=== PATIENT | male | born 1960 | race Caucasian/White ===

== ENCOUNTER → 2017-11-02 13:48 | Outpatient (CLI) | payer OTHER, SELFPAY ==
--- NOTE | 2017-11-02 13:57 | ECHOD_ITS ---
Reason For Study: CARDIOMYOPATHY Procedure This was a 2D Doppler, Color Flow transthoracic echocardiogram. The exam was of fair technical quality due to diminished acoustic windows. Exam performed in department. Left Ventricle Normal LV size. Left ventricular systolic function is normal. The estimated ejection fraction is 55 %. Transmitral doppler flow suggestive of impaired relaxation of left ventricle. No regional wall motion abnormalities noted. Right Ventricle Normal RV size. Normal systolic function. Atria The left atrium is mildly enlarged. Normal right atrium. No doppler evidence for ASD. Mitral Valve There is no mitral annular calcification. Equivocal mitral valve prolapse. Trivial mitral valve insufficiency. Tricuspid Valve Normal tricuspid valve. Trivial tricuspid valve insufficiency. Right ventricular systolic pressure estimated to be 21 mmHg. Aortic Valve Trisinus/trileaflet aortic valve. Normal aortic valve. Pulmonic Valve The pulmonic valve is not well visualized. Trivial pulmonic valve insufficiency. Great Vessels Normal sized aortic root. Pericardium/Pleural No pericardial effusion. MMode/2D Measurements & Calculations LVIDd: 4.9 cm IVSd: 0.87 cm Ao root diam: 2.9 cm LVIDs: 3.0 cm LVPWd: 0.88 cm LA dimension: 3.8 cm RVDd: 3.3 cm FS: 39.5 % LAV(MOD-bp): 60.8 ml LA A4 area: 20.2 cm2 RA A4 area: 14.7 cm2 LAV(MOD-bp) Indexed: 28.0 ml/m2 LAV(MOD-sp2): 59.5 ml LAV(MOD-sp4): 55.6 ml Doppler Measurements & Calculations MV E max tarik: 73.6 cm/sec Lat Peak E' Tarik: 11.4 cm/sec Med Peak E' Tarik: 9.4 cm/sec MV A max tarik: 82.3 cm/sec E/E' lat: 6.4 E/E' med: 7.9 MV E/A: 0.90 Ao V2 max: 125.7 cm/sec LV V1 max: 110.4 cm/sec PA V2 max: 107.1 cm/sec Ao max P.3 mmHg LV V1 max P.9 mmHg PI end-d tarik: 82.1 cm/sec TR max tarik: 214.3 cm/sec TR max P.4 mmHg Interpretation Summary Left ventricular systolic function is normal. The estimated ejection fraction is 55 %. The left atrium is mildly enlarged. Equivocal mitral valve prolapse. Trivial mitral valve insufficiency. Trivial tricuspid valve insufficiency. Trivial pulmonic valve insufficiency. Right ventricular systolic pressure estimated to be 21 mmHg. Transmitral doppler flow suggestive of impaired relaxation of left ventricle Ordering Physician: Rosi Hanson Referring Physician: Rosi Hanson M.D. Performed By: Vero Sims RDCS, RVT
--- NOTE | 2017-11-02 14:38 | CT_ITS ---
STUDY: CT BRAIN WITH AND WITHOUT CONTRAST REASON FOR EXAM: Male, 56 years old. Memory loss RADIATION DOSAGE (If Supplied By Facility): CTDIvol = ( 44.99 ) mGy, DLP = ( 1583.78 ) mGycm TECHNIQUE: Transaxial CT imaging of the brain was performed pre and post contrast administration. The examination was performed with intravenous administration of 50 ml of Isovue 370 contrast material. Individualized dose optimization techniques were used for this CT. COMPARISON: None. FINDINGS: There is no acute bleed or infarct. There are normal white matter tracts. There is no abnormal enhancement following contrast administration. There are no intracranial masses identified. The ventricles are normal in configuration. There is no hydrocephalus. The visualized paranasal sinuses are clear. The mastoid air cells are well aerated. There is no skull fracture. CT/Brain/Head W/WO Contrast IMPRESSION: Unremarkable CT of the brain performed without and with intravenous contrast. Electronically Signed: Paul Alejo, at 23:12 EDT Tel , Service support ,
== END ==
PROVIDERS: Family Provider Internal Medicine; PCP Internal Medicine; Visit Provider Internal Medicine
DX: R41.3 Other amnesia (principal); I42.9 Cardiomyopathy, unspecified
CPT/HCPCS: 70470; 93306; Q9967

== ENCOUNTER → 2021-02-22 12:02 | Outpatient (CLI) | payer OTHER, SELFPAY ==
[2021-02-22 15:30] LABS: Erythrocyte Sedimentation Rate 8 mm/hr (0-20)
[2021-02-22 15:32] LABS: Absolute Neutrophil Count 4.8 X10^3/uL (2.0-7.7); Basophil# 0.03 X10^3/uL; Basophil% 0.4 % (0-1); Eosinophil# 0.28 X10^3/uL; Hematocrit 45.1 % (40-54); Hemoglobin 15.3 g/dL (13.0-16.5); Lymphocyte % 19.8 % (19-41); Mean Corp Hgb Conc 33.9 g/dL (32-36); Mean Corpuscular Hgb 31.8 pg (27.0-32.0); Mean Corpuscular Volume 93.8 fL (80-94); Mean Platelet Vol. 9.8 fl (6.2-12.0); Monocyte# 0.53 X10^3/uL; Monocyte% 7.5 % (0-10); NRBC Flagged by Analyzer 0 % (0-5); Neutrophil # 4.81 X10^3/uL (2.7-7.7); Neutrophil % 67.9 % (47-70); Platelet Count 231 K/mm3 (150-450); RBC Distribution Width CV 14.6 % (11.6-14.6); RBC Distribution Width SD 50.1 fl (35.1-43.9); Red Blood Count 4.81 M/mm3 (4.6-6.2); White Blood Count 7.1 K/mm3 (4.4-11.0)
[2021-02-22 16:04] LABS: CRP < 2.90 mg/L (0.0-3.0)
== END ==
PROVIDERS: PCP Internal Medicine; Referring Provider Ophthalmology; Visit Provider Ophthalmology
DX: H53.2 Diplopia (principal); H53.10 Unspecified subjective visual disturbances
CPT/HCPCS: 36415; 85025; 85652; 86140

== ENCOUNTER 2021-05-17 12:19 | Outpatient (CLI) | payer OTHER, SELFPAY ==
[2021-05-17 12:24] VITALS: BP 139/80; PULSE 66; RESP 16; TEMP 36.8; O2SAT 100; BMI 30.7
[2021-05-17] MEDS: 0.9% Saline Lock 10 ML Syringe IV (12:39)
[2021-05-17 13:11] VITALS: BP 129/75; PULSE 62; RESP 16; TEMP 37.1; O2SAT 99
[2021-05-17 13:58] VITALS: BP 159/79; PULSE 62; RESP 16; TEMP 36.8; O2SAT 100
== END 2021-05-17 14:11 | disposition home or self-care (01) ==
LOC: MS3OUT 12:19 → MS3 12:20
PROVIDERS: PCP Internal Medicine; Referring Provider Nurse Practitioner Adult Health; Visit Provider Nurse Practitioner Adult Health
DX: U07.1 COVID-19 (principal)
CPT/HCPCS: J7050; M0245; Q0245; A4216

== ENCOUNTER → 2022-06-20 | Outpatient (CLI) | payer OTHER, SELFPAY ==
--- NOTE | 2022-06-20 15:41 | RAD_ITS ---
EXAM: XR BILATERAL HIPS WITH PELVIS WHEN PERFORMED, 2 VIEWS CLINICAL INDICATION: HIP PAIN TECHNIQUE: Frontal view of the bilateral hips with pelvis when performed. This report was created using [employer] report generation technology. COMPARISON: None. FINDINGS: BONES/JOINTS: Unremarkable. No displaced fracture. No destructive or sclerotic lesions. Note that overlapping bowel shadows may however obscure fine detail. Sacroiliac joint is unremarkable. No widening of the pubic symphysis. The articular structures are unremarkable. SOFT TISSUES: Unremarkable. No soft tissue swelling or gas. RAD/Hips B/L min 2 views w/ Pelvis IMPRESSION: No evidence of displaced pelvic or hip fracture. Electronically Signed: Bismark Ledesma MD at 18:53 EST ,
== END | disposition home or self-care (01) ==
PROVIDERS: PCP Internal Medicine; Referring Provider Internal Medicine; Visit Provider Internal Medicine
DX: M25.551 Pain in right hip (principal); M25.552 Pain in left hip
CPT/HCPCS: 73521

== ENCOUNTER → 2023-03-15 | Outpatient (CLI) | payer OTHER, SELFPAY ==
--- NOTE | 2023-03-15 15:19 | RAD_ITS ---
STUDY: X-RAY - LUMBAR SPINE REASON FOR EXAM: Male, 62 years old. Radiating leg pain TECHNIQUE: 4 view(s) of the lumbar spine were obtained. COMPARISON: None FINDINGS: Normal lumbar lordosis. There is no substantial scoliosis. There is a normal alignment of the vertebrae. Normal vertebral bodies and endplates. There is multi-level degenerative disc disease with multi-level disc space narrowing. There is no demonstrated fracture. There is atherosclerotic calcification of the abdominal aorta without a demonstrated aneurysm. RAD/L/S Spine Min 4 Views IMPRESSION: Age consistent degenerative changes, no acute findings Electronically Signed: Justin Polanco MD at 9:17 EDT ,
== END | disposition home or self-care (01) ==
PROVIDERS: PCP Family Medicine; Referring Provider Family Medicine; Visit Provider Family Medicine
DX: M54.16 Radiculopathy, lumbar region (principal)
CPT/HCPCS: 72110

== ENCOUNTER → 2023-05-23 | Outpatient (CLI) | payer OTHER, SELFPAY ==
--- NOTE | 2023-05-23 13:50 | NEURO ---
NCS and/or EMG Patient Report Ordering Doctor: Kelly Lorenz DATE OF SERVICE: 05/23/23 Cristo presents for electrodiagnostic testing of the lower limbs. Reports pain numbness and tingling in both legs. He has a history of chronic Lyme disease. He reports lower back pain. Electrodiagnostic findings: Right peroneal motor nerve demonstrates normal distal latency, amplitude and conduction velocity. Left peroneal motor nerve demonstrates normal distal latency, amplitude and conduction velocity. Tibial motor response demonstrates normal distal latency, amplitude and conduction velocity bilaterally. Normal tibial and peroneal F?waves. Borderline prolonged right tibial H?reflex. Mildly prolonged sural latency is noted bilaterally. Normal superficial peroneal motor response. Needle EMG testing was performed in the lower limbs. All muscles tested showed no evidence of denervation with normal motor unit action potentials. Electrodiagnostic assessment: This is an abnormal study in the lower limbs. 1. Electrodiagnostic findings demonstrate prolonged distal latency bilaterally in the sural nerve, consistent with a mild bilateral sural neuropathy. However, this does not adequately explain the patient's symptoms. There is no electrodiagnostic evidence for peripheral polyneuropathy. 2. There is no electrodiagnostic evidence for lumbosacral radiculopathy. 3. There is no electrodiagnostic evidence for myopathy. Multi Select Codes Neurology Neurology Interp Codes: 45931-93 Musc test done w/n test comp (interp) (2) and 30230-96 Nrv cndj test 9-10 studies (interp)
== END | disposition home or self-care (01) ==
LOC: PSN 12:29
PROVIDERS: PCP Family Medicine; Referring Provider Family Medicine; Visit Provider Family Medicine
DX: M62.81 Muscle weakness (generalized) (principal); G62.9 Polyneuropathy, unspecified; Z86.19 Personal history of other infectious and parasitic diseases
CPT/HCPCS: 95886; 95911

== ENCOUNTER 2024-05-01 18:44 | Inpatient (IN) | payer OTHER, SELFPAY ==
[2024-05-01] VITALS (8 sets, daily range): BP systolic 125–160; BP diastolic 73–82; PULSE 71–76; RESP 15–26; TEMP 36.2; O2SAT 95–99; BMI 31.0; BMI 30.3
--- NOTE | 2024-05-01 19:42 | EKG12_ITS ---
Test Reason : REPEAT Blood Pressure : */* mmHG Vent. Rate : 73 BPM Atrial Rate : 73 BPM P-R Int : 174 ms QRS Dur : 86 ms QT Int : 362 ms P-R-T Axes : 21 39 15 degrees QTcB Int : 398 ms Normal sinus rhythm Normal ECG Confirmed by YAMILETH BROOKS, LUPE ([id number]), business editor ISIDRO GARIBAY ([id number]) on 05/07/2024 1:27:31 P M Referred By: Kris Lobo Confirmed By: LUPE CARSON MD
--- NOTE | 2024-05-01 19:45 | RAD_ITS ---
STUDY: X-RAY CHEST REASON FOR EXAM: Male, 63 years old. Chest pain TECHNIQUE: Single AP portable view of the chest. COMPARISON: February 10, 2014 FINDINGS: The lungs are clear and expanded. There is no demonstrated pleural abnormality. Normal size heart. Normal mediastinum and adam. Normal visualized pulmonary arteries. Normal visualized aortic arch and descending thoracic aorta. Normal visualized thoracic spine. Normal visualized ribs, clavicles, and shoulders. There is no demonstrated abnormality of the visualized soft tissue structures of the upper abdomen. RAD/Chest 1 View (Portable) IMPRESSION: Normal x-ray examination of the chest. Electronically Signed: Tavon Tabares MD at 21:[address] [facility] ,
[2024-05-01 19:50] LABS: Absolute Neutrophil Count 6.1 X10^3/uL (2.0-7.7); Basophil# 0.03 X10^3/uL; Basophil% 0.3 % (0-1); Eosinophil# 0.13 X10^3/uL; Eosinophils% 1.5 % (0-5); Hematocrit 43.8 % (40-54); Lymphocyte % 21.5 % (19-41); Mean Corp Hgb Conc 34.2 g/dL (32-36); Mean Corpuscular Hgb 31.3 pg (27.0-32.0); Mean Corpuscular Volume 91.4 fL (80-94); Mean Platelet Vol. 9.5 fl (6.2-12.0); Monocyte# 0.63 X10^3/uL; Monocyte% 7.1 % (0-10); NRBC Flagged by Analyzer 0 % (0-5); Neutrophil % 69.3 % (47-70); Platelet Count 229 K/mm3 (150-450); RBC Distribution Width SD 49.6 fl (35.1-43.9); Red Blood Count 4.79 M/mm3 (4.6-6.2); White Blood Count 8.8 K/mm3 (4.4-11.0)
--- NOTE | 2024-05-01 20:04 | EDS_ITS ---
HPI History of Present Illness Chief Complaint: Chest Pain Informant: patient and spouse/S.O. Narrative Narrative: 63-year-old male presenting to the emergency room out of concern for heart attack. Patient states today he was at work and he went outside to help get kids loaded up he felt tightness in his chest and his head. Symptoms resolved he went home and had another episode this time making his left arm and his bilateral jaw hurt. He states he felt this pressure sensation in his chest and his head again. states that he appeared grayish. He states he feels much better but still has a slight discomfort in the jaw. He notes that he has been having some difficulty breathing through his nose and thought perhaps it was the fireplace and had an episode of difficulty breathing through his mouth so he went to an outside emergency department last night. He states he had cardiac enzymes that were elevated (troponin high-sensitivity 67 and 61 with normal less than 12) and was advised to follow-up with cardiology. These results were obtained using Satiety. he notes that in the past he has been diagnosed with Lyme disease and had a cardiomyopathy that he was seeing cardiology for. He states he has not seen a research home economist now for couple years. He notes a history of hypothyroidism reported dyslipidemia and enlarged prostate. He denies any leg symptoms or sweating dyspnea. He does get acid reflux but states this felt very much different. [facility] Medical History (Updated 05/01/24 @ 21:[address] Laura West MD) CKD (chronic kidney disease), stage III Depression Cardiomyopathy Acid reflux Inguinal hernia, right Arthritis Mild degeneration of cervical intervertebral disc Benign prostatic hyperplasia with urinary obstruction and other lower urinary tract symptoms Right groin pain Borderline diabetes mellitus Hypothyroidism Hyperlipidemia Lyme disease LUE DVT Home Medications ?Medication ?Instructions ?Recorded ?Last Taken ?Type trazodone 50 mg tablet 50 mg PO DAILY 02/10/14 02/11/14 History prazosin 2 mg capsule 4 mg PO HS 09/04/17 Unknown History sertraline 50 mg tablet 50 mg PO QDAY 09/04/17 Unknown History carvedilol 3.125 mg tablet (Coreg) 3.125 mg PO BID #180 tabs 06/09/19 Unknown Rx dexamethasone 6 mg tablet 6 mg PO DAILY #5 tabs 05/16/21 Unknown Rx (Decadron) Allergy/AdvReac Type Severity Reaction Status Date / Time hydrocodone (From Vicodin) Allergy Unknown Unknown Verified 05/01/24 18:44 simvastatin Allergy Unknown Unknown Verified 05/01/24 18:44 Family History (Updated 05/01/24 @ 21:[address] Laura West MD) Father Heart disease Cancer Hypertension Mother Heart disease Diabetes Hypertension Surgical History S/P PICC central line placement S/P inguinal hernia repair Hx of fusion of cervical spine S/P cholecystectomy Social History (Updated 05/01/24 @ 21:[address] Laura West MD) household members: spouse Smoking Status: Never smoker second hand exposure: No alcohol intake: never substance use type: does not use caffeine: Yes what type of physical activity do you participate in: none frequency: does not exercise seatbelt use: always ROS ROS ED Constitutional Constitutional ED: Denies chills, fever(s) or weight loss Eyes Eyes: Denies change in vision or diplopia ENT ENT ED: Reports other Details: Jaw pain nasal congestion ; Denies ear pain, rhinorrhea or sore throat Cardiovascular Cardiovascular: Reports chest pain; Denies orthopnea, palpitations or racing heartbeat Respiratory/Chest Respiratory/Chest: Reports dyspnea; Denies cough or orthopnea Gastrointestinal Gastrointestinal: Denies abdominal pain, diarrhea, nausea or vomiting Genitourinary Genitourinary ED: Denies dysuria, hematuria or urinary frequency Musculoskeletal Musculoskeletal: Denies arthralgias or myalgias Integumentary Denies abscess or rash Neurologic Neurologic: Denies headache(s) or weakness Psychiatric Psychiatric: Denies anxiety, depression, suicidal ideation or suicidal thoughts Endocrine Endocrinology: Denies polydipsia, polyphagia or polyuria Allergic/Immunologic Allergic/Immunologic ED: Denies mouth swelling, tongue swelling or urticaria EXAM Physical Exam Const Vital Signs: 05/01/24 18:45 05/01/24 18:55 05/01/24 19:42 Temperature 97.2 F L Temperature Source Temporal Pulse Rate 73 Respiratory Rate 18 Respiratory Effort Normal Non-Labored Blood Pressure 160/82 H Blood Pressure Mean 108 Pulse Ox 98 95 Oxygen Delivery Method Room Air Room Air 05/01/24 19:45 05/01/24 20:00 05/01/24 21:00 Temperature Temperature Source Pulse Rate 73 71 74 Respiratory Rate 23 H 19 H 26 H Respiratory Effort Blood Pressure 141/73 H 140/77 H 138/76 H Blood Pressure Mean 92 93 96 Pulse Ox 95 99 97 Oxygen Delivery Method Positive well nourished and well developed General Appearance ED: well developed and NAD HEENT Reports normocephalic, head/scalp atraumatic and moist mucous membranes Eyes PERRL and EOMs intact bilaterally Neck no lymphadenopathy, supple and no JVD Resp normal respiratory effort and clear to auscultation bilaterally Cardio regular rate, regular rhythm and no murmurs GI normal to inspection, nondistended, normoactive bowel sounds and non-tender Palpation: soft Back/Spine no CVA tenderness and normal ROM Extremity normal to inspection General Extremety ED: Negative for edema General Extremity: Negative for edema Neuro oriented x3 and CN's II-XII intact bilaterally Sensorium / Orientation: alert Motor Exam: strength 5/5 throughout Psych mental status grossly normal Mood & Affect: Negative for depressed or tearful Skin no rashes or lesions noted and no wounds Heart Score History: Highly Suspicious ECG: Normal Age: >45 - <65 years Risk Factors: 1 or 2 Risk Factors Score: 4 MDM MDM MDM Narrative Medical decision making narrative: Differential diagnosis includes but not limited to acute coronary syndrome pulmonary embolism pleural effusion congestive heart failure cardiomyopathy hypertensive urgency/emergency electrolyte abnormality My independent interpretation of the chest x-ray is no acute process. EKG shows a sinus rhythm with PAC and a ventricular rate of 72 bpm. Initial troponin is 68 this increased to 82 this delta troponin. Second EKG does not show any significant changes from the first. Given the patient's description of his symptoms I think it is reasonable that we bring him in for further cardiac evaluation. I will speak with the hospitalist. History & Record Review Discussion w/independent historian: Patient and Significant other Additional record(s) reviewed:: Prior labs Lab Data Attestation: I reviewed the patient's lab results. Labs: Laboratory Results - last 24 hr 05/01/24 05/01/24 18:59 21:55 WBC 8.8 RBC 4.79 Hgb 15.0 Hct 43.8 MCV 91.4 MCH 31.3 MCHC 34.2 RDW Std Deviation 49.6 H RDW Coeff of Melani 15.0 H Plt Count 229 MPV 9.5 Immature Gran % (Auto) 0.300 Neut % (Auto) 69.3 Lymph % (Auto) 21.5 [place] % (Auto) 7.1 Eos % (Auto) 1.5 Baso % (Auto) 0.3 Absolute Neuts (auto) 6.1 Absolute Lymphs (auto) 1.90 Nucleated RBC % 0 Sodium 140 Potassium 4.2 Chloride 107 Carbon Dioxide 28.0 Anion Gap 5 BUN 19 H Creatinine 1.48 H Estim Creat Clear Calc 61.01 Est GFR (MDRD) Af Amer 62 Est GFR (MDRD) Non-Af 51 L BUN/Creatinine Ratio 12.8 Glucose 116 H Calcium 9.4 Magnesium 2.0 Troponin I High Sens 68 82 H Radiography Diagnostic Testing: Clinical Impression(s) from Imaging Studies Chest X-Ray 05/01/24 19:45 IMPRESSION: Normal x-ray examination of the chest. Electronically Signed: Tavon Tabares MD at 21:09 EST , EKG Initial EKG: Attestation: I personally reviewed and interpreted this EKG as follows: Comments: Sinus rhythm with PACs ventricular rate of 72 bpm Follow-up EKG: Attestation: I personally reviewed and interpreted this EKG as follows: Comments: Normal sinus rhythm ventricular rate of 73 bpm Management Discussion w/another healthcare provider: Hospitalist (Dr West) Discharge Plan Triage Chief Complaint: Chest Pain ED Provider: Kris Lobo Dx/Rx/DC Orders Prescriptions: No Action prazosin 2 mg capsule 4 mg PO HS sertraline 50 mg tablet 50 mg PO QDAY dexamethasone [Decadron] 6 mg tablet 6 mg PO DAILY Qty: 5 0RF trazodone 50 MG tablet 50 mg PO DAILY Patient Comments: SLEEP carvedilol [Coreg] 3.125 mg tablet 3.125 mg PO BID Qty: 180 3RF Rx Instructions: administer with food (meal or snack) Primary Care Provider: Kelly Lorenz Referrals: Kelly Lorenz MD [Primary Care Provider] - Print Language: Belarusian
[2024-05-01 20:11] LABS: Anion Gap 5 (5-15); BUN 19 mg/dL (7-18); BUN/Creat Ratio 12.8 RATIO (10-20); Calcium,Total 9.4 mg/dL (8.5-10.1); Chloride 107 mmol/L (98-107); Creatinine, Serum 1.48 mg/dL (0.70-1.30); EST Glomerular Filtration Rate 51 mL/min (>60); Est Glom Filt Rate - Afr Amer 62 mL/min (>60); Estimated Creatinine Clearance 61.01 ml/min; Glucose 116 mg/dL (74-106); Potassium 4.2 mmol/L (3.5-5.1); Sodium Level 140 mmol/L (136-145); Troponin-I HS (w/2H Reflex) 68 pg/mL (3.0-78.0)
[2024-05-01 21:46] LABS: Reflex Troponin-HS? (from REC) Y
--- NOTE | 2024-05-01 21:49 | PCM.HP.STD ---
HPI - General General Date of Admission: 05/01/24 Date of Service: 05/01/24 Chief Complaint: Chest pain, dyspnea. HPI Narrative The patient is a 63 y/o M w/ PMHx: Suspected CKD stage III unclear subtype, Cardiomyopathy unclear type, Anxiety and Depression, GERD, BPH, Borderline Diabetes, Hx Lyme disease with chronic bilateral lower extremity paresthesias and left upper extremity paresthesias, Hx LUE DVT after PICC placement which has been placed for Lyme disease therapy, HTN, HLD, Hypothyroidism who presents to the 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 He notes his chest feels better but he still has some jaw discomfort. He does state he also had some dyspnea associated. Because of some dyspnea he had the evening prior he also reports that he been seen in the outside emergency room with cardiac enzymes reportedly possibly elevated and was advised to follow-up with cardiology but uncertain as records have been requested per ED and are pending. He does state that in the past he had seen cardiology for cardiomyopathy but is not seen them for some time. He does have a history of reflux and dyspepsia but the symptoms are different. He noted at it is worse his chest discomfort and jaw discomfort were rated 8-9 out of 10 in severity. Workup in the ED included T97.2, heart rate 73, BP 160/82, respiratory rate 18, 98% on room air with most recent repeat vital sign heart rate 74, BP 130/76, respiratory rate 26, 97% room air, CBC with WBC 8.8, hemoglobin 15, platelet 229 without marked shift, BMP with BUN/creatinine 19/1.48, GFR 51, glucose 116, initial troponin 68 with repeat delta 82, chest x-ray with no acute cardiopulmonary findings, EKG with sinus rhythm with no acute evidence of ischemia. Discussed case with Dr. Laguna on-call for cardiology given history and at this time recommended pursuing cardiac stress testing unless cardiac enzymes continue to rise or any concerning things occurred cardiac valenzuela. [facility] Medical History CKD (chronic kidney disease), stage III Depression Cardiomyopathy Acid reflux Inguinal hernia, right Arthritis Mild degeneration of cervical intervertebral disc Benign prostatic hyperplasia with urinary obstruction and other lower urinary tract symptoms Right groin pain Borderline diabetes mellitus Hypothyroidism Hyperlipidemia Lyme disease LUE DVT Home Medications ?Medication ?Instructions ?Recorded ?Last Taken ?Type trazodone 50 mg tablet 50 mg PO DAILY 02/10/14 02/11/14 History prazosin 2 mg capsule 4 mg PO HS 09/04/17 Unknown History sertraline 50 mg tablet 50 mg PO QDAY 09/04/17 Unknown History carvedilol 3.125 mg tablet (Coreg) 3.125 mg PO BID #180 tabs 06/09/19 Unknown Rx dexamethasone 6 mg tablet 6 mg PO DAILY #5 tabs 05/16/21 Unknown Rx (Decadron) Allergy/AdvReac Type Severity Reaction Status Date / Time hydrocodone (From Vicodin) Allergy Unknown Unknown Verified 05/01/24 18:44 simvastatin Allergy Unknown Unknown Verified 05/01/24 18:44 Family History Father Heart disease Cancer Hypertension Mother Heart disease Diabetes Hypertension Surgical History S/P PICC central line placement S/P inguinal hernia repair Hx of fusion of cervical spine S/P cholecystectomy Social History household members: spouse Smoking Status: Never smoker second hand exposure: No alcohol intake: never substance use type: does not use caffeine: Yes what type of physical activity do you participate in: none frequency: does not exercise seatbelt use: always ROS ROS Narrative Admission Review of Systems: CONSTITUTIONAL: No weight loss, fever, chills, + weakness or fatigue. HEENT: Eyes: No visual loss, blurred vision, double vision or yellow sclerae. Ears, Nose, Throat: No hearing loss, sneezing, congestion, runny nose or sore throat. SKIN: No rash or itching, lesions, wounds. CARDIOVASCULAR: + Chest pain, jaw pain, left upper extremity paresthesias. No palpitations, edema, orthopnea, syncopal events. RESPIRATORY: No shortness of breath, cough or sputum, wheezing, hemoptysis. GASTROINTESTINAL: No anorexia, nausea, vomiting or diarrhea, abdominal pain, melena, BRBPR. GENITOURINARY: No dysuria, frequency, urgency or retention. NEUROLOGICAL: + Chronic bilateral lower extremity paresthesias, chronic left upper extremity paresthesias although it is noted this was acute on chronic and different he notes. No headache, dizziness, syncope, paralysis, ataxia, focal weakness, change in bowel or bladder control, seizure. MUSCULOSKELETAL: + muscle, back pain, joint pain or stiffness. HEMATOLOGIC: No anemia, bleeding or bruising. LYMPHATICS: No enlarged nodes. No history of splenectomy. PSYCHIATRIC: + History of anxiety and depression. ENDOCRINOLOGIC: No reports of sweating, cold or heat intolerance. No polyuria or polydipsia. ALLERGIES: No history of asthma, hives, eczema or rhinitis. Vital Signs Vital Signs Vital Signs: 05/01/24 18:45 05/01/24 18:55 05/01/24 19:42 Temperature 97.2 F L Temperature Source Temporal Pulse Rate 73 Respiratory Rate 18 Respiratory Effort Normal Non-Labored Blood Pressure 160/82 H Blood Pressure Mean 108 Pulse Ox 98 95 Oxygen Delivery Method Room Air Room Air 05/01/24 19:45 05/01/24 20:00 05/01/24 21:00 Temperature Temperature Source Pulse Rate 73 71 74 Respiratory Rate 23 H 19 H 26 H Respiratory Effort Blood Pressure 141/73 H 140/77 H 138/76 H Blood Pressure Mean 92 93 96 Pulse Ox 95 99 97 Oxygen Delivery Method Weight Weight: 222 lb 7.143 oz Body Mass Index (BMI) 31.0 Physical Exam Narrative Physical Examination: General: Awake, alert, oriented x 3 and cooperative, seated upright in the ED bed, denies any current chest discomfort and jaw pain is resolved, no dyspnea Skin: Normal color, normal turgor, no icterus, no cyanosis. HEENT: AT/NC, EOMI, PERRLA, MMM, no carotid bruits or JVD noted. Lungs: CTA bilaterally, moderate effort, mild decrease BL bases, no rales, ronchi or wheezing. Heart: Regular rate and rhythm; no gallop, rub audible. Abdomen: Soft, obese, NTTP, ND, normal BS, no HSM. Extremities: No cyanosis, no clubbing, no marked peripheral edema. Neurological: Patient awake, alert, oriented as noted, cognitive function intact; pupils equally reactive to light and accommodation, cranial nerves gross normal, moving all 4 extremities, no focal deficits, strength mildly globally decreased, chronic bilateral lower extremity and left upper extremity paresthesias unchanged. Psychiatric: Affect appears fatigued otherwise normal, no acute evidence of depressive or anxiety feelings but does have underlying history. Results Lab / Micro Data 05/01/24 18:59 05/01/24 18:59 Labs: Laboratory Results - last 24 hr 05/01/24 18:59: WBC 8.8, RBC 4.79, Hgb 15.0, Hct 43.8, MCV 91.4, MCH 31.3, MCHC 34.2, RDW Std Deviation 49.6 H, RDW Coeff of Mealni 15.0 H, Plt Count 229, MPV 9.5, Immature Gran % (Auto) 0.300, Neut % (Auto) 69.3, Lymph % (Auto) 21.5, [place] % (Auto) 7.1, Eos % (Auto) 1.5, Baso % (Auto) 0.3, Absolute Neuts (auto) 6.1, Absolute Lymphs (auto) 1.90, Nucleated RBC % 0, Sodium 140, Potassium 4.2, Chloride 107, Carbon Dioxide 28.0, Anion Gap 5, BUN 19 H, Creatinine 1.48 H, Estim Creat Clear Calc 61.01, Est GFR (MDRD) Af Amer 62, Est GFR (MDRD) Non-Af 51 L, BUN/Creatinine Ratio 12.8, Glucose 116 H, Calcium 9.4, Troponin I High Sens 68 Imaging Radiology Impression Chest X-Ray 05/01/24 19:45 IMPRESSION: Normal x-ray examination of the chest. Electronically Signed: Tavon Tabares MD at 21:09 EST , Assessment & Plan Assessment/Plan (1) Chest pain: PLAN: Plan The patient is a 63 y/o M w/ PMHx: Suspected CKD stage III unclear subtype, Cardiomyopathy unclear type, Anxiety and Depression, GERD, BPH, Borderline Diabetes, Hx Lyme disease, Hx LUE DVT after PICC placement which has been placed for Lyme disease therapy, HTN, HLD, Hypothyroidism who presents to the 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 #1. Chest Pain: EKG in ED with sinus rhythm with no acute evidence of ischemia, CXR w/ no acute cardiopulmonary findings, initial trop 68. Will admit to PCU, place on a monitored bed to assure no acute myocardial infarction with serial cardiac enzymes and EKGs. Per discussion with cardiology will at this time pursue cardiac stress testing but if enzymes rise notably then per discussion would involve cardiology and pursue cardiac catheterization, magnesium level requested, FLP in AM. BETITO NORRIS. #2. Cardiomyopathy, unclear type: Most recent echo noted 11/02/2017 with LV systolic function normal, EF 55%, mildly enlarged LA, trivial MVI, trivial TVI, trivial PI, RVSP 21 mmHg, transmitral Doppler flow suggestive of impaired relaxation of left ventricle, will continue Coreg, not on KARLOS inhibitor or ARB or statin therapy and per current list does not appear to be on baby aspirin but clarifying. #3. Chart reported history of borderline diabetes: Not on any regimen per current list, will obtain he will A1c, maintain on ADA diet with Accu-Cheks with insulin sliding scale in interim. #4. Significant history of Lyme disease: Patient with significant history of Lyme disease requiring IV therapy which is why he had a PICC line and unfortunately the DVT remotely, encourage continued outpatient follow-up with infectious disease as previously arranged. #5. Hypertension: Continue home regimen including Coreg however BP is above goal this may need to alter regimen but will continue to monitor for trending, PRN hydralazine. #6. Hyperlipidemia: Not on regimen per current list with allergy but unclear exact reaction noted, clarifying. #7. Anxiety and depression: We will continue patient home sertraline and trazodone regimen. #8. History of VTE: Patient with history of left upper extremity DVT following PICC line, previously had been treated short-term with Xarelto and completed. #9. Hypothyroidism: Wilkening patient home levothyroxine regimen. #10. Chronic Kidney Disease Stage suspected stage III unclear subtype but uncertain as previous to this last lab noted with GFR 67 in 2015 and prior to this labs more consistent with stage II but suspect his advanced: Admission BUN/Cr 19/1.48, GFR 51, baseline renal function primarily in the past had been 1.1-1.3 but labs are remote and last was from 2014, repeat BMP in AM. #11. Obesity: Weight loss and lifestyle changes encouraged. #12. BPH without obstructive pathology: #13. DVT prophylaxis: Lovenox. #14. CODE status: Patient HCPNATALIE is his who is present and living will is currently in place. Full Code status. Charges/Coding Visit Charges Inpatient E&M: 26490 Init Hosp L2
--- NOTE | 2024-05-01 21:57 | EKG12_ITS ---
Test Reason : PCI Blood Pressure : */* mmHG Vent. Rate : 79 BPM Atrial Rate : 79 BPM P-R Int : 180 ms QRS Dur : 92 ms QT Int : 366 ms P-R-T Axes : 19 46 10 degrees QTcB Int : 419 ms Normal sinus rhythm Normal ECG When compared with ECG of 02-May-2024 00:03, MANUAL COMPARISON REQUIRED DATA IS UNCONFIRMED Confirmed by BERNARD BROOKS, NAYELI ([id number]), newspaper managing editor ISIDRO GARIBAY ([id number]) on 05/05/2024 12:48:43 PM Referred By: Kris Lobo Confirmed By: NAYELI WAGNER MD
[2024-05-01 22:23] LABS: Troponin-I HS 82 pg/mL (3.0-78.0)
--- NOTE | 2024-05-01 23:50 | EKG12_ITS ---
Test Reason : AM EKG Blood Pressure : */* mmHG Vent. Rate : 73 BPM Atrial Rate : 73 BPM P-R Int : 186 ms QRS Dur : 90 ms QT Int : 388 ms P-R-T Axes : 24 38 12 degrees QTcB Int : 427 ms Normal sinus rhythm Normal ECG When compared with ECG of 02-May-2024 14:30, MANUAL COMPARISON REQUIRED DATA IS UNCONFIRMED Confirmed by BERNARD BROOKS, NAYELI ([id number]), fan mail editor ISIDRO GARIBAY ([id number]) on 05/05/2024 12:47:49 PM Referred By: Kris Lobo Confirmed By: NAYELI WAGNER MD
[2024-05-02] VITALS (15 sets, daily range): BP systolic 114–151; BP diastolic 56–94; PULSE 61–78; RESP 16–21; TEMP 36–37.1; O2SAT 95–100
[2024-05-02] MEDS: 0.9% Saline Lock 10 ML Syringe IV ×2 (00:17→10:44)
[2024-05-02] MEDS: Aspirin 81 MG TAB.CHEW 324 MG PO (00:17)
[2024-05-02] MEDS: Carvedilol 3.125 MG TABLET PO ×3 (00:17→21:35)
[2024-05-02 00:45] LABS: Bedside Glucose 121 mg/dL (74-106)
[2024-05-02 01:45] LABS: Troponin-I HS 197 pg/mL (3.0-78.0)
--- NOTE | 2024-05-02 01:56 | PCM.HOSP.N ---
Hospitalist Note Troponin has risen now to 197, will d/c lovenox, start heparin drip, will place formal consult to Cardiology for them to decide if they want to continue with stress test as they initially recommended or plan cardiac catheterization.
--- NOTE | 2024-05-02 02:06 | ECHOD_ITS ---
Reason For Study: NSTEMI Procedure This was a 2D Doppler, Color Flow transthoracic echocardiogram. Exam performed portable in patient room. Left Ventricle Normal LV size. The estimated ejection fraction is 55 %. No evidence for diastolic dysfunction. No regional wall motion abnormalities noted. Right Ventricle Normal RV size. Normal systolic function. Atria The left and right atria are normal. No doppler evidence for ASD. Mitral Valve There is no mitral valve stenosis. Trivial mitral valve insufficiency. Tricuspid Valve There is no tricuspid stenosis. Trivial tricuspid valve insufficiency. Pulmonary artery systolic pressure is 25 mmHg. Aortic Valve Trisinus/trileaflet aortic valve. There is no aortic stenosis. No aortic valve insufficiency. Pulmonic Valve There is no pulmonic valvular stenosis. Trivial pulmonic valve insufficiency. Great Vessels Normal aortic root. Pericardium/Pleural No pericardial effusion. MMode/2D Measurements & Calculations LVIDd: 4.9 cm IVSd: 1.1 cm LVOT diam: 2.1 cm LVIDs: 4.1 cm LVPWd: 1.1 cm LVOT area: 3.5 cm2 FS: 16.4 % Ao root diam: 3.0 cm asc Aorta Diam: 3.2 cm LAV(MOD-bp): 56.8 ml LAV(MOD-bp) Indexed: 26.1 ml/m2 LAV(MOD-sp2): 48.5 ml LAV(MOD-sp4): 55.0 ml SV(MOD-sp4): 52.0 ml SV(sp4-el): 54.9 ml LVAd ap4: 29.9 cm2 LVLd ap4: 7.7 cm SI(MOD-sp4): 23.9 ml/m2 EDV(MOD-sp4): 94.6 ml EDV(sp4-el): 98.8 ml LVAs ap4: 18.0 cm2 LVLs ap4: 6.3 cm ESV(MOD-sp4): 42.6 ml ESV(sp4-el): 43.9 ml EF(MOD-sp4): 54.9 % EF(sp4-el): 55.6 % LA A4 area: 20.2 cm2 LA dimension(2D): 4.2 cm RA A4 area: 12.1 cm2 Time Measurements MV dec time: 0.20 sec Doppler Measurements & Calculations MV E max tarik: 73.7 cm/sec Lat Peak E' Tarik: 13.8 cm/sec Med Peak E' Tarik: 7.2 cm/sec MV A max tarik: 62.4 cm/sec E/E' lat: 5.3 E/E' med: 10.3 MV E/A: 1.2 MV V2 max: 75.9 cm/sec Ao V2 max: 103.4 cm/sec MV max P.3 mmHg MV dec slope: 372.5 cm/sec2 Ao max P.3 mmHg MV V2 mean: 48.2 cm/sec Ao V2 mean: 75.1 cm/sec MV mean P.1 mmHg Ao mean P.5 mmHg MV V2 VTI: 24.1 cm Ao V2 VTI: 26.2 cm AV (velocity ratio): 0.80 MVA(VTI): 3.0 cm2 FAIZAN(I,D): 2.8 cm2 FAIZAN(V,D): 3.1 cm2 LV V1 max: 92.3 cm/sec SV(LVOT): 72.6 ml PA V2 max: 85.1 cm/sec LV V1 max P.4 mmHg PA V2 mean: 60.4 cm/sec LV V1 mean P.8 mmHg LV V1 mean: 62.4 cm/sec LV V1 VTI: 20.9 cm TR max tarik: 236.8 cm/sec TR max P.4 mmHg ECHO/Echo Complete Interpretation Summary The estimated ejection fraction is 55 %. No evidence for diastolic dysfunction. Trivial mitral valve insufficiency. Ordering Physician: Laura West Referring Physician: Kris Lobo Performed By: Maxine Yu RCS
[2024-05-02 03:00] LABS: Prothrombin Time (Protime)PT. 13.5 SECONDS (11.7-14.9)
[2024-05-02] MEDS: 0.9% Normal Saline (1000mL) 1,000 ML 100 ML IV (03:00)
[2024-05-02 03:01] LABS: Partial Thromboplast Time 23.7 Seconds (24.1-36.2)
[2024-05-02] MEDS: HEPARIN/D5w 25,000 UNITS 25,000 UNITS/250 ML IV.SOLN. 10 UNITS CONT INF (03:13)
[2024-05-02] MEDS: Heparin Injection (Vial) 5,000 UNIT/ML VIAL 4000 UNIT IV (03:15)
[2024-05-02 05:45] LABS: Absolute Lymphocyte Count 1.75 X10^3/uL (0.83-4.51); Absolute Neutrophil Count 5.2 X10^3/uL (2.0-7.7); Basophil# 0.03 X10^3/uL; Basophil% 0.4 % (0-1); Eosinophil# 0.18 X10^3/uL; Eosinophils% 2.3 % (0-5); Hematocrit 42.3 % (40-54); Hemoglobin 14.5 g/dL (13.0-16.5); Lymphocyte # 1.75 X10^3/ul (0.83-4.51); Lymphocyte % 22.5 % (19-41); Mean Corp Hgb Conc 34.3 g/dL (32-36); Mean Corpuscular Hgb 31.5 pg (27.0-32.0); Mean Corpuscular Volume 91.8 fL (80-94); Mean Platelet Vol. 9.1 fl (6.2-12.0); Monocyte# 0.64 X10^3/uL; Monocyte% 8.2 % (0-10); NRBC Flagged by Analyzer 0 % (0-5); Neutrophil # 5.15 X10^3/uL (2.7-7.7); Neutrophil % 66.2 % (47-70); Platelet Count 207 K/mm3 (150-450); RBC Distribution Width CV 15.2 % (11.6-14.6); Red Blood Count 4.61 M/mm3 (4.6-6.2); White Blood Count 7.8 K/mm3 (4.4-11.0)
[2024-05-02 06:10] LABS: ALB/GLOB Ratio 1.1 RATIO (0.9-2.4); AST(SGOT) 23 U/L (15-37); Alanine Aminotransfer ALT/SGPT 32 U/L (16-61); Albumin, Serum 3.5 g/dL (3.2-5.0); Alkaline Phosphatase 55 U/L (45-117); Anion Gap 2 (5-15); BUN 24 mg/dL (7-18); Calcium,Total 9.1 mg/dL (8.5-10.1); Chloride 109 mmol/L (98-107); Cholesterol 232 mg/dL (200); Creatinine, Serum 1.33 mg/dL (0.70-1.30); EST Glomerular Filtration Rate 58 mL/min (>60); Est Glom Filt Rate - Afr Amer 70 mL/min (>60); Estimated Creatinine Clearance 67.16 ml/min; Globulin 3.2 g/dL (2.2-4.2); Glucose 106 mg/dL (74-106); High Density Lipoprotein 40 mg/dL; Potassium 4.4 mmol/L (3.5-5.1); Protein, Total 6.7 g/dL (6.4-8.2); Sodium Level 139 mmol/L (136-145); Triglycerides 150 mg/dL; Very Low Density Lipoprotein 30 mg/dL (5-40)
[2024-05-02] MEDS: Aspirin E.C. 81 MG Tablet PO (06:16)
[2024-05-02 07:40] LABS: Bedside Glucose 99 mg/dL (74-106)
--- NOTE | 2024-05-02 08:26 | PN.HOSP_ITS ---
Reason for Visit Reason for Visit: Diagnoses Chest pain, unspecified (05/01/24) Subjective Subjective Feeling well. No new complaints. No chest pain. Objective Data Objective Data Vital Signs: Vital Signs Temp Pulse Resp BP Pulse Ox O2 Del Method O2 Flow Rate 36.6 C 73 18 124/65 H 100 Nasal Cannula 2 05/02/24 06:10 05/02/24 06:10 05/02/24 06:10 05/02/24 06:10 05/02/24 06:10 05/02/24 06:10 05/02/24 06:10 Oxygen Flow Rate (L/min) 2 Oxygen Delivery Method Nasal Cannula Weight: 98.611 kg Body Mass Index (BMI) 30.3 Lab / Micro Data 05/02/24 05:29 05/02/24 05:29 Labs: Laboratory Results - last 24 hr 05/01/24 18:59: WBC 8.8, RBC 4.79, Hgb 15.0, Hct 43.8, MCV 91.4, MCH 31.3, MCHC 34.2, RDW Std Deviation 49.6 H, RDW Coeff of Melani 15.0 H, Plt Count 229, MPV 9.5, Immature Gran % (Auto) 0.300, Neut % (Auto) 69.3, Lymph % (Auto) 21.5, [place] % (Auto) 7.1, Eos % (Auto) 1.5, Baso % (Auto) 0.3, Absolute Neuts (auto) 6.1, Absolute Lymphs (auto) 1.90, Nucleated RBC % 0, Sodium 140, Potassium 4.2, Chloride 107, Carbon Dioxide 28.0, Anion Gap 5, BUN 19 H, Creatinine 1.48 H, Estim Creat Clear Calc 61.01, Est GFR (MDRD) Af Amer 62, Est GFR (MDRD) Non-Af 51 L, BUN/Creatinine Ratio 12.8, Glucose 116 H, Calcium 9.4, Troponin I High Sens 68 05/01/24 21:55: Magnesium 2.0, Troponin I High Sens 82 H 05/02/24 00:15: POC Glucose 121 H 05/02/24 01:05: PT 13.5, INR 1.0, APTT 23.7 L, Troponin I High Sens 197 H* 05/02/24 05:29: WBC 7.8, RBC 4.61, Hgb 14.5, Hct 42.3, MCV 91.8, MCH 31.5, MCHC 34.3, RDW Std Deviation 51.0 H, RDW Coeff of Melani 15.2 H, Plt Count 207, MPV 9.1, Immature Gran % (Auto) 0.400, Neut % (Auto) 66.2, Lymph % (Auto) 22.5, [place] % (Auto) 8.2, Eos % (Auto) 2.3, Baso % (Auto) 0.4, Absolute Neuts (auto) 5.2, Absolute Lymphs (auto) 1.75, Nucleated RBC % 0, Sodium 139, Potassium 4.4, C hloride 109 H, Carbon Dioxide 28.0, Anion Gap 2 L, BUN 24 H, Creatinine 1.33 H, Estim Creat Clear Calc 67.16, Est GFR (MDRD) Af Amer 70, Est GFR (MDRD) Non-Af 58 L, BUN/Creatinine Ratio 18.0, Glucose 106, Calcium 9.1, Total Bilirubin 0.90, AST 23, ALT 32, Alkaline Phosphatase 55, Total Protein 6.7, Albumin 3.5, Globulin 3.2, Albumin/Globulin Ratio 1.1, Triglycerides 150, Cholesterol 232 H, LDL Cholesterol 162 H, VLDL Cholesterol 30, HDL Cholesterol 40 05/02/24 06:18: POC Glucose 99 Radiography Diagnostic Testing: Radiology Impression Chest X-Ray 05/01/24 19:45 IMPRESSION: Normal x-ray examination of the chest. Electronically Signed: Tavon Tabares MD at 21:09 EST , Physical Exam Const alert and no apparent distress HEENT head/scalp atraumatic and moist oral mucous membranes Resp normal respiratory effort, no retractions, no use of accessory muscles and clear to auscultation bilaterally Cardio regular rate, regular rhythm, S1 normal heart sound and S2 normal heart sound GI normal to inspection, nondistended, normoactive bowel sounds, soft to palpation, non-tender and non-distended Extremity Extremity Narrative: right radial band in place. Assessment & Plan Assessment/Plan (1) Chest pain: PLAN: Plan NSTEMI * trops up to 197 * PCI to circumflex and RCA * on ASA, ticagrelor, statin * echo shows an EF 55% Chronic conditions: * Hypertension: Continue home regimen including Coreg however BP is above goal this may need to alter regimen but will continue to monitor for trending, PRN hydralazine. * Hyperlipidemia: Not on regimen per current list with allergy but unclear exact reaction noted, clarifying. * Anxiety and depression: We will continue patient home sertraline and trazodone regimen. * History of VTE: Patient with history of left upper extremity DVT following PICC line, previously had been treated short-term with Xarelto and completed. * Hypothyroidism: levothyroxine * Chronic Kidney Disease Stage suspected stage III unclear subtype but uncertain as previous to this last lab noted with GFR 67 in 2014 and prior to this labs more consistent with stage II but suspect his advanced: Admission BUN/Cr 19/1.48, GFR 51, baseline renal function primarily in the past had been 1.1- 1.3 but labs are remote and last was from 2014, repeat BMP in AM. * obesity class I: complicates care and recovery. VTE prophylaxis: LMWH Disposition: plan for home on 05/03 if remains stable. Charges/Coding Visit Charges Inpatient E&M: 84416 Subs Hosp L2
[2024-05-02 10:34] LABS: Partial Thromboplast Time 38.1 Seconds (24.1-36.2)
[2024-05-02] MEDS: Heparin Injection (Vial) 5,000 UNIT/ML VIAL IV (10:45)
--- NOTE | 2024-05-02 11:53 | PCM.CONS.C ---
Assessment & Plan Assessment/Plan (1) Chest pain: QUALIFIERS: Chest pain type: unspecified Qualified Code(s): R07.9 - Chest pain, unspecified PLAN: Patient's troponin is mildly elevated. Treatment options were discussed with the patient in detail. Risks and benefits of cardiac catheterization were also discussed. We will proceed with cardiac catheterization/coronary angiography to evaluate etiology of patient's chest pain and elevated troponin. Patient understands the risks and benefits and wishes to proceed. HPI Consult Data Date of Consult: 05/02/24 HPI Narrative Reason for Consultation: Chest pain, elevated troponin HPI Narrative: CLEM STALLINGS, is a 63 M who presents after an episode of chest pressure with radiation to his jaw on both sides. Patient's high-sensitivity troponin went up to around 197. 2D echo revealed no significant regional wall motion abnormalities. [facility] Medical History CKD (chronic kidney disease), stage III Depression Cardiomyopathy Acid reflux Inguinal hernia, right Arthritis Mild degeneration of cervical intervertebral disc Benign prostatic hyperplasia with urinary obstruction and other lower urinary tract symptoms Right groin pain Borderline diabetes mellitus Hypothyroidism Hyperlipidemia Lyme disease LUE DVT Home Medications ?Medication ?Instructions ?Recorded ?Last Taken ?Type trazodone 50 mg tablet 100 mg PO DAILY 02/10/14 04/30/24 History prazosin 2 mg capsule 4 mg PO HS 09/04/17 05/01/24 History carvedilol 3.125 mg tablet (Coreg) 3.125 mg PO BID #180 tabs 06/09/19 05/01/24 Rx levothyroxine 75 mcg tablet 75 mcg PO DAILY 05/01/24 05/01/24 History fluticasone propionate 50 2 spray intranasal DAILY nasal 05/02/24 Unknown History mcg/actuation nasal congestion spray,suspension (Allergy Relief (fluticasone)) Allergy/AdvReac Type Severity Reaction Status Date / Time hydrocodone (From Vicodin) Allergy Unknown Unknown Verified 05/01/24 18:44 simvastatin Allergy Unknown Unknown Verified 05/01/24 18:44 Family History Father Heart disease Cancer Hypertension Mother Heart disease Diabetes Hypertension Surgical History S/P PICC central line placement S/P inguinal hernia repair Hx of fusion of cervical spine S/P cholecystectomy Social History household members: spouse Smoking Status: Never smoker second hand exposure: No alcohol intake: never substance use type: does not use caffeine: Yes what type of physical activity do you participate in: none frequency: does not exercise seatbelt use: always Physical Exam Const alert and no apparent distress HEENT normocephalic Eyes no scleral icterus Resp normal respiratory effort Psych mental status grossly normal Risk Stratification Risk Stratification Applicable: No Charges/Coding Visit Charges Inpatient E&M: 32849 Init Hosp L2 Objective Data Vital Signs: Vital Signs Temp Pulse Resp BP Pulse Ox O2 Del Method O2 Flow Rate 97.9 F 73 18 124/65 H 97 Nasal Cannula 2 05/02/24 06:10 05/02/24 06:10 05/02/24 06:10 05/02/24 06:10 05/02/24 07:35 05/02/24 08:15 05/02/24 08:15 Oxygen Flow Rate (L/min) 2 Oxygen Delivery Method Nasal Cannula Weight: 217 lb 6.4 oz Body Mass Index (BMI) 30.3 Intake & Output: Intake and Output for Last 24 Hours 04/30/24 05/01/24 05/02/24 23:59 23:59 23:59 Intake Total 75.33 / 75.33 Balance 75.33 / 75.33 Lab / Micro Data 05/02/24 05:29 05/02/24 05:29 Labs: Laboratory Results - last 24 hr 05/01/24 18:59: WBC 8.8, RBC 4.79, Hgb 15.0, Hct 43.8, MCV 91.4, MCH 31.3, MCHC 34.2, RDW Std Deviation 49.6 H, RDW Coeff of Melani 15.0 H, Plt Count 229, MPV 9.5, Immature Gran % (Auto) 0.300, Neut % (Auto) 69.3, Lymph % (Auto) 21.5, Sargent % (Auto) 7.1, Eos % (Auto) 1.5, Baso % (Auto) 0.3, Absolute Neuts (auto) 6.1, Absolute Lymphs (auto) 1.90, Nucleated RBC % 0, Sodium 140, Potassium 4.2, Chloride 107, Carbon Dioxide 28.0, Anion Gap 5, BUN 19 H, Creatinine 1.48 H, Estim Creat Clear Calc 61.01, Est GFR (MDRD) Af Amer 62, Est GFR (MDRD) Non-Af 51 L, BUN/Creatinine Ratio 12.8, Glucose 116 H, Calcium 9.4, Troponin I High Sens 68 05/01/24 21:55: Magnesium 2.0, Troponin I High Sens 82 H 05/02/24 00:15: POC Glucose 121 H 05/02/24 01:05: PT 13.5, INR 1.0, APTT 23.7 L, Troponin I High Sens 197 H* 05/02/24 05:29: WBC 7.8, RBC 4.61, Hgb 14.5, Hct 42.3, MCV 91.8, MCH 31.5, MCHC 34.3, RDW Std Deviation 51.0 H, RDW Coeff of Melani 15.2 H, Plt Count 207, MPV 9.1, Immature Gran % (Auto) 0.400, Neut % (Auto) 66.2, Lymph % (Auto) 22.5, Sargent % (Auto) 8.2, Eos % (Auto) 2.3, Baso % (Auto) 0.4, Absolute Neuts (auto) 5.2, Absolute Lymphs (auto) 1.75, Nucleated RBC % 0, Sodium 139, Potassium 4.4, Chloride 109 H, Carbon Dioxide 28.0, Anion Gap 2 L, BUN 24 H, Creatinine 1.33 H, Estim Creat Clear Calc 67.16, Est GFR (MDRD) Af Amer 70, Est GFR (MDRD) Non-Af 58 L, BUN/Creatinine Ratio 18.0, Glucose 106, Calcium 9.1, Total Bilirubin 0.90, AST 23, ALT 32, Alkaline Phosphatase 55, Total Protein 6.7, Albumin 3.5, Globulin 3.2, Albumin/Globulin Ratio 1.1, Triglycerides 150, Cholesterol 232 H, LDL Cholesterol 162 H, VLDL Cholesterol 30, HDL Cholesterol 40 05/02/24 06:18: POC Glucose 99 05/02/24 10:13: APTT 38.1 H Cardiology Labs/Tests 05/01/24 18:59: WBC 8.8, RBC 4.79, Hgb 15.0, Hct 43.8, MCV 91.4, MCH 31.3, MCHC 34.2, Plt Count 229, MPV 9.5, Immature Gran % (Auto) 0.300, Neut % (Auto) 69.3, Lymph % (Auto) 21.5, Sargent % (Auto) 7.1, Eos % (Auto) 1.5, Baso % (Auto) 0.3, Absolute Neuts (auto) 6.1, Nucleated RBC % 0, Sodium 140, Potassium 4.2, Chloride 107, Carbon Dioxide 28.0, Anion Gap 5, BUN 19 H, Creatinine 1.48 H, Est GFR (MDRD) Af Amer 62, Est GFR (MDRD) Non-Af 51 L, BUN/Creatinine Ratio 12.8, Glucose 116 H, Calcium 9.4 05/01/24 21:55: Magnesium 2.0 05/02/24 01:05: PT 13.5, INR 1.0, APTT 23.7 L 05/02/24 05:29: WBC 7.8, RBC 4.61, Hgb 14.5, Hct 42.3, MCV 91.8, MCH 31.5, MCHC 34.3, Plt Count 207, MPV 9.1, Immature Gran % (Auto) 0.400, Neut % (Auto) 66.2, Lymph % (Auto) 22.5, Sargent % (Auto) 8.2, Eos % (Auto) 2.3, Baso % (Auto) 0.4, Absolute Neuts (auto) 5.2, Nucleated RBC % 0, Sodium 139, Potassium 4.4, Chloride 109 H, Carbon Dioxide 28.0, Anion Gap 2 L, BUN 24 H, Creatinine 1.33 H, Est GFR (MDRD) Af Amer 70, Est GFR (MDRD) Non-Af 58 L, BUN/Creatinine Ratio 18.0, Glucose 106, Calcium 9.1, Total Bilirubin 0.90, Triglycerides 150, Cholesterol 232 H, LDL Cholesterol 162 H, VLDL Cholesterol 30, HDL Cholesterol 40 05/02/24 10:13: APTT 38.1 H Rhythm: EKG: ECHO: Stress Test: Cardiac Cath: PCI: CT Surgery: Holter monitor: EPS: PPM: CXR: Chest CT Scan: Radiography Diagnostic Testing: Radiology Impression Chest X-Ray 05/01/24 19:45 IMPRESSION: Normal x-ray examination of the chest. Electronically Signed: Tavon Tabares MD at 21:09 EST , Echocardiogram 05/02/24 02:06 Interpretation Summary The estimated ejection fraction is 55 %. No evidence for diastolic dysfunction. Trivial mitral valve insufficiency. Ordering Physician: Laura West Referring Physician: Kris Lobo Performed By: Maxine Yu RCS
--- NOTE | 2024-05-02 13:30 | EKG12_ITS ---
Test Reason : CHEST PAIN Blood Pressure : */* mmHG Vent. Rate : 72 BPM Atrial Rate : 72 BPM P-R Int : 164 ms QRS Dur : 86 ms QT Int : 366 ms P-R-T Axes : 28 46 17 degrees QTcB Int : 400 ms Sinus rhythm with Premature supraventricular complexes Otherwise normal ECG Confirmed by YAMILETH BROOKS, LUPE ([id number]), commissioning editor ISIDRO GARIBAY ([id number]) on 05/07/2024 1:27:49 P M Referred By: Kris Lobo Confirmed By: LUPE CARSON MD
--- NOTE | 2024-05-02 13:37 | CRPHASE1 ---
Patient Communication Patient Information PHII Cardiac Rehab Discussed with Patient:: Yes Guide to Cardiac Rehab Given to Patient:: Yes Cardiac Rehab Facility Choice List Given to Patient:: Yes Communication to Cardiac Rehab Choice Program [facility] CR PHII:: Communication Given to CR Transport Corps Officer:: Dagmar Laguna Phase II Cardiac Rehab:: Yes Sessions:: 36 sessions - 3 days/wk, 12 weeks Cardiac Rehabilitation Info Program Information Cardiac Rehabilitation Program Information: Cardiac Rehab The cardiac rehab team at [facility] consists of highly skilled exercise physiologists, nurses, respiratory therapists and physicians working together with you. Our purpose is to help you have a full recovery and achieve the goals you set for yourself. Over the years many of our patients have returned to activities they assumed they would never do again! We can help restore your confidence and motivation to make lifestyle changes that can have a significant impact on your health and quality of life! We can help answer questions and concerns you may have about exercise, lifestyle, medications, diet, stress and anxiety which are common following a hospitalization. WE monitor ECG and vital signs during exercise and discuss your progress with you and report to your physician(s). Cardiac Rehab is proven to help reduce readmissions, improve functional capacity and lower recurrence of problems with your heart. Our Cardiac Rehab program is Certified by the [place] [employer] Pulmonary [employer] (AACVPR) and Accredited by the [employer] through our [facility]. You can contact us at . We invite you to call us with your questions or to get started in our program. If you have other questions or concerns be sure to ask your physician/provider during your follow-up visit. WE look forward to seeing you!
--- NOTE | 2024-05-02 13:37 | CRPH1.INSTRU ---
General Education Discussed with Patient CAD and cardiac anatomy and function:: Patient communicates acknowledgment and Family communicates acknowledgment Explanation of diagnoses and procedures:: Patient communicates acknowledgment and Family communicates acknowledgment Sign/Symptoms of SC:: Patient communicates acknowledgment and Family communicates acknowledgment Antiplatelet therapy: Patient communicates acknowledgment and Family communicates acknowledgment Proper use of NTG-SL: Patient communicates acknowledgment and Family communicates acknowledgment Emergency procedures and activation of EMS: Patient communicates acknowledgment and Family communicates acknowledgment Compliance of all prescribed medications: Patient communicates acknowledgment and Family communicates acknowledgment Dyslipidemia Risk Factors Patient Dyslipidemia Risk Factors Are:: Total Cholesterol, Triglycerides, HDL and LDL Recommendations Recommendations Include:: Lipid profile not available Response Code Dyslipidemia Response Code:: Patient communicates acknowledgment and Family communicates acknowledgment Overweight/Obesity Risk Factors Patient Overweight/Obesity Risk Factors Are:: Obesity - > or = 30 Recommendations Recommendations Include:: Weight loss of 5-10%, Reduced calorie diet and Exercise 5-7 times/week Response Code Overweight/Obesity:: Patient communicates acknowledgment and Family communicates acknowledgment Hypertension Recommendations Recommendations Include:: Maintain BP <130/85 and Decrease/maintain normal body weight Response Code Hypertension:: Patient communicates acknowledgment and Family communicates acknowledgment Heart Disease Risk Factors Patient Heart Disease Risk Factors Are:: Family history of heart disease < 65 years old Recommendations Recommendations Include:: Educated family members of their risk and Educated family members of importance of prevention of heart disease Response Code Heart Disease Response Code:: Patient communicates acknowledgment and Family communicates acknowledgment Sedentary Risk Factors Patient Sedentary Risk Factors Are:: Lack of regular exercise Recommendations Recommendations Include:: Aerobic exercise 5-7 times/week for 20-30 minutes continuously, Benefits of regular exercise, Discussed home walking program and Monitored Outpatient Cardiac Rehab Response Code Sedentary Response Code:: Patient communicates acknowledgment and Family communicates acknowledgment
--- NOTE | 2024-05-02 14:17 | CL.I_ITS ---
Patient Name: CLEM STALLINGS Study Date: 05/02/2024 Performing: Ml Laguna MD Ht: 71 inches 180.34 cm : 1960 Wt: 217.7 lbs 98.61 kg Age: 63 Gender: male BSA: 2.18 PROCEDURE(S) PERFORMED DC02-(25940)LHC/COR IC12-([id number])AUDRA W/WO PTCA, SINGLE CORONARY ARTERY IC01-([id number])PTCA, SINGLE CORONARY ARTERY CLINICAL PROFILE AND CO-MORBIDITIES Indications: ACS <= 24 hrs, NSTEMI Heart Failure: None CONCLUSIONS CAD as described. Successful PTCA of distal circumflex and drug-eluting stent to proximal RCA. RECOMMENDATIONS Maximal medical therapy for coronary artery disease. If patient continues to have symptoms, consider PCI of OM1 DESCRIPTION OF PROCEDURE The patient arrived to the procedure lab. The risks and benefits of the procedure as well as a full description of our services here and lack of surgical backup were fully explained to the patient and/or their significant other prior to the catheterization. The Timeout was completed, verifying the correct patient and procedure. The patient's procedural site was prepped and draped in the usual fashion. Local anesthetic was given subcutaneously to right radial region with Lidocaine 2%. Using a modified Seldinger technique, arterial access was obtained via the right radial artery, a 6Fr sheath was inserted.. Left Coronary Artery selective angiography was performed in multiple views using a 5 Fr. JL3.5 catheter. Right Coronary Artery selective angiography was then performed in multiple views using a 5 Fr. JR 4 catheterThe images were reviewed and options discussed. A decision was then made to proceed with an Intervention, IVUS or other adjunct procedure. XB3 Guide catheter was inserted and engaged into the LCA. BMW Guide wire was advanced to the Circumflex. 1.5x15 Emerge Balloon catheter was inserted. Balloon catheter was advanced across lesion in the circumflex, distal. PTCA balloon inflated at 8 atms for 10 secs. Angiogram performed post balloon dilatation. PTCA balloon inflated at 6 atms for 6 secs. Angiogram performed post balloon dilatation. JR4 Guide catheter was inserted and engaged into the RCA. BMW Guide wire was advanced to the RCA. 2.5x8 Emerge Balloon catheter was inserted. Balloon catheter was advanced across lesion in the right coronary, proximal. PTCA balloon inflated at 8 atms for 12 secs. Angiogram performed post balloon dilatation. 3x12 Wirt Drug Eluting stent was inserted. Drug Eluting stent was advanced across the lesion in the right coronary, proximal. Angiogram performed post stent deployment. Angiogram performed post stent deployment. The arterial sheath was pulled and a TR Band was applied for hemostasis, 16cc of air CORONARY ANGIOGRAPHY DOMINANCE: Right Dominant LEFT MAIN: Mild luminal irregularities LEFT ANTERIOR DESCENDING ARTERY: Mild luminal irregularities DIAGONAL 1: Ostial - 50 % Stenosis CIRCUMFLEX ARTERY: DISTAL CIRC: 95 % Stenosis OM 1: Proximal - 60 % Stenosis RIGHT CORONARY ARTERY: PROX RCA: 80-90 % Stenosis MID RCA: 30 % Stenosis DISTAL RCA: 30 % Stenosis INTERVENTION INFORMATION LESION SITE: Circumflex (Distal) Lesion Complexity: High/C, chronic total occlusion: No, lesion at bifurcation: No, thrombus present: No, lesion length: 14 mm, culprit lesion: Yes, Previously treated lesion: No Pre Stenosis: 95 % Pre intervention DEBBY flow: 2 PROCEDURE: Balloon Angioplasty Post Stenosis: 10 % Post intervention DEBBY flow: 3 Lesion Devices: Conner .014 190cm BMW Liberal Straight Cordis 6 Fr XB3.0 100cm Guide Catheter Niranjan Sci EMERGE MR 1.50x15 BALLOON LESION SITE: RCA (Proximal) Lesion Complexity: High/C, chronic total occlusion: No, lesion at bifurcation: Yes, thrombus present: No, lesion length: 10 mm, culprit lesion: Yes, Previously treated lesion: No Pre Stenosis: 85 % Pre intervention DEBBY flow: 3 PROCEDURE: Drug Eluting Stent with pre dilatation. Post Stenosis: 0 % Post intervention DEBBY flow: 3 Lesion Devices: Conner .014 190cm BMW Liberal Straight Cordis 6 Fr JR4 100cm Guide Catheter Niranjan Sci EMERGE MR 2.50x08 BALLOON Medtronic 3.0 x 12 SUYAPA FRONTIER AUDRA COMPLICATIONS No Complications PROCEDURE MEDICATIONS Fentanyl 50 mcg IV Versed 1 mg IV Brilinta 180 mg PO @ 05/02/2024 12:24:23 Heparin 25,000u / 250ml D5W @ 0 u/hr discontinued 05/02/2024 11:42:31 Heparin given IA 05/02/2024 12:14:48 Heparin 2000 unit(s) IV 05/02/2024 12:27:16 Heparin 2000 unit(s) IV 05/02/2024 12:50:05 Verapamil 2.5mg, Ntg 100mcgs, 3000 units of Heparin given IA 05/02/2024 12:14:48 SUMMARY OF HEMODYNAMIC DATA Time AIR REST ECG 11:48:31 AO 131/78 (100) SA 12:13:21 Signed By Ml Laguna MD On 05/02/2024 14:16:44 Ml Laguna MD
[2024-05-02] MEDS: Acetaminophen 325 MG Tablet 650 MG PO (14:39)
[2024-05-02] MEDS: Fluticasone 0.05% 1 SPRAY NASAL.SRY 2 SPRAY NASAL (14:41)
--- NOTE | 2024-05-02 15:01 | CHAPLAIN ---
Type of Pastoral Visit _x__ Initial Visit ___ Follow-up Visit ___ On-call Visit ___ General Patient Visit ___ Spiritual Assessment ___ Family Conference ___ Bereavement ___ Rapid Response ___ Code Blue ___ Other (describe below) Pastoral Care Referral From _x__ Patient ___ Family ___ Nurse ___ Physician ___ Sustainability Officer ___ Refinery Superintendent ___ Other (describe below) Sacrament/Intervention _x__ Active listening ___ Anointing ___ Episcopal ___ Bereavement ___ Communion ___ Briana exploration ___ _x__ Life review _x__ Prayer ___ Reconciliation ___ Sacrament of Sick ___ Supportive presence ___ Wedding ___ Other (describe below) Pastoral Comments patient had a heart cath and resulting intervention just earlier today; pt explains his situation and his coming into the hospital; pt speaks of his work and hopeful fci in the future; pt has family support; pt welcomes prayer and presence
--- NOTE | 2024-05-02 15:41 | CASEMGMT ---
JACQUI CARR Assessment Face to Face with patient for initial transition planning/care coordination assessment. JACQUI CARR introduced self and role at [facility], pt voices understanding. Pt is A&Ox4 and is resting comfortably in bed and is calm. Pt at bedside. Care providers, pharmacy, and demographics verified. Admitting dx: KAMLA BECKFORD Strata: 2 PCP: Kelly Lorenz Specialists: GISELLA Preferred Pharmacy: [facility] Insurance: Cigna Prescription Benefit: yes LNOK: Jessica () Living Arrangements: Pt lives with his in a 2 story home with one step to enter ADLs/IADLs: Ind Transportation: Self, DME: Denies HHC/SNF: reports HH x7-10 years ago but cannot recall the name of the agency Pt?s goal: Home Plan: Home no needs. Pt denies the need for HH, OP Tx, or CCN. Pt states that he feels safe returning home with his once he is medically cleared. Per medical team, pt will likely get a new Rx for Brilinta at time of Dc. Pt educated that CM will call the pt pharmacy at time of DC to verify cost after insurance. If pt were to DC outside of CM hours, this JACQUI CARR provided the pt with the 5$ trial card. Pt educated that this can only be used once per lifetime. Pt states understanding and thanks this JACQUI CARR and denies further concerns. Molina Sutton RN, CM
[2024-05-02] MEDS: Prazosin HCl 1 MG Capsule 4 MG PO (21:33)
[2024-05-02] MEDS: Atorvastatin Calcium 20 MG Tablet PO (21:34)
[2024-05-02] MEDS: traZODone 100 MG Tablet PO (21:36)
[2024-05-02] MEDS: TICAGRELOR 90 MG TABLET PO (21:37)
[2024-05-03 00:29] LABS: Bedside Glucose 95 mg/dL (74-106)
[2024-05-03 02:51] LABS: Bedside Glucose 104 mg/dL (74-106)
[2024-05-03 04:53] VITALS: BP 130/72; PULSE 100; RESP 16; TEMP 36.6; O2SAT 69
[2024-05-03] MEDS: Fluticasone 0.05% 1 SPRAY NASAL.SRY 2 SPRAY NASAL (05:54)
[2024-05-03] MEDS: Enoxaparin 40 MG/0.4 ML Syringe SC (06:00)
[2024-05-03 06:47] LABS: Hematocrit 41.7 % (40-54); Hemoglobin 14.6 g/dL (13.0-16.5); Mean Corpuscular Hgb 32.2 pg (27.0-32.0); Mean Corpuscular Volume 92.1 fL (80-94); Mean Platelet Vol. 9.5 fl (6.2-12.0); Platelet Count 202 K/mm3 (150-450); RBC Distribution Width CV 15.2 % (11.6-14.6); RBC Distribution Width SD 51.1 fl (35.1-43.9); Red Blood Count 4.53 M/mm3 (4.6-6.2); White Blood Count 7.7 K/mm3 (4.4-11.0)
[2024-05-03 06:48] VITALS: O2SAT 95
[2024-05-03 06:55] LABS: Bedside Glucose 117 mg/dL (74-106)
[2024-05-03 07:47] LABS: ALB/GLOB Ratio 1.1 RATIO (0.9-2.4); AST(SGOT) 21 U/L (15-37); Alanine Aminotransfer ALT/SGPT 30 U/L (16-61); Albumin, Serum 3.5 g/dL (3.2-5.0); Alkaline Phosphatase 59 U/L (45-117); Anion Gap 7 (5-15); BUN 19 mg/dL (7-18); Chloride 107 mmol/L (98-107); Creatinine, Serum 1.19 mg/dL (0.70-1.30); EST Glomerular Filtration Rate 65 mL/min (>60); Est Glom Filt Rate - Afr Amer 79 mL/min (>60); Estimated Creatinine Clearance 75.06 ml/min; Globulin 3.1 g/dL (2.2-4.2); Glucose 118 mg/dL (74-106); Potassium 4.1 mmol/L (3.5-5.1); Protein, Total 6.6 g/dL (6.4-8.2); Sodium Level 138 mmol/L (136-145)
[2024-05-03] MEDS: Pantoprazole Sodium 20 MG Tablet PO (09:27)
[2024-05-03] MEDS: Carvedilol 3.125 MG TABLET PO (09:27)
[2024-05-03] MEDS: Aspirin E.C. 81 MG Tablet PO (09:28)
--- NOTE | 2024-05-03 10:00 | EKG12_ITS ---
Test Reason : CP ADMIT Blood Pressure : */* mmHG Vent. Rate : 72 BPM Atrial Rate : 72 BPM P-R Int : 194 ms QRS Dur : 94 ms QT Int : 380 ms P-R-T Axes : 41 41 16 degrees QTcB Int : 416 ms Normal sinus rhythm Normal ECG When compared with ECG of 01-May-2024 20:21, MANUAL COMPARISON REQUIRED DATA IS UNCONFIRMED Confirmed by YAMILETH BROOKS, LUPE ([id number]), city editor ISIDRO GARIBAY ([id number]) on 05/08/2024 5:49:48 A M Referred By: Kris Lobo Confirmed By: LUPE CARSON MD
[2024-05-03 10:30] VITALS: BP 122/77; PULSE 76; RESP 16; TEMP 36.7; O2SAT 99
[2024-05-03] MEDS: TICAGRELOR 90 MG TABLET PO (10:43)
--- NOTE | 2024-05-03 11:23 | PCM.DC.SUM ---
Providers Date of Admission: 05/02/24 Primary Care Physician: Dr. Kelly Lorenz MD Consultations 05/02/24 01:54 Consult: Cardiology Routine Consulting Provider: Dagmar Laguna Reason for Consult: Chest pain, NSTEMI EMERGENT Consult: No MD Notified: Yes Date Notified: 05/02/24 Time Notified: 01:54 Method of Notification: Text Reason For Visit: CHEST PAIN Diagnosis Discharge Diagnosis (1) Chest pain: Status: Acute Code(s): R07.9 - Chest pain, unspecified Qualifiers: Chest pain type: unspecified Qualified Code(s): R07.9 - Chest pain, unspecified Plan NSTEMI trops up to 197 PCI to circumflex and RCA on ASA, ticagrelor, statin echo shows an EF 55% Chronic conditions: Hypertension: Continue home regimen including Coreg however BP is above goal this may need to alter regimen but will continue to monitor for trending, PRN hydralazine. Hyperlipidemia: Not on regimen per current list with allergy but unclear exact reaction noted, clarifying. Anxiety and depression: We will continue patient home sertraline and trazodone regimen. History of VTE: Patient with history of left upper extremity DVT following PICC line, previously had been treated short-term with Xarelto and completed. Hypothyroidism: levothyroxine Chronic Kidney Disease Stage suspected stage III unclear subtype but uncertain as previous to this last lab noted with GFR 67 in 2014 and prior to this labs more consistent with stage II but suspect his advanced: Admission BUN/Cr 19/1.48, GFR 51, baseline renal function primarily in the past had been 1.1-1.3 but labs are remote and last was from 2014, repeat BMP in AM. obesity class I: complicates care and recovery. DC home. Follow up with cardiology as outpt. Medications at Discharge Home Medications trazodone 50 mg tablet 100 mg PO DAILY 02/10/14 prazosin 2 mg capsule 4 mg PO HS 09/04/17 carvedilol 3.125 mg tablet (Coreg) 3.125 mg PO BID #180 tabs 06/09/19 levothyroxine 75 mcg tablet 75 mcg PO DAILY 05/01/24 fluticasone propionate 50 mcg/actuation nasal spray,suspension (Allergy Relief (fluticasone)) 2 spray intranasal DAILY nasal congestion 05/02/24 omeprazole 20 mg capsule,delayed release 20 mg PO DAILY reflux 05/02/24 aspirin 81 mg tablet,delayed release 81 mg PO BREAKFAST #0 tabs 05/03/24 atorvastatin 20 mg tablet 20 mg PO QHS #30 tabs 05/03/24 lisinopril 5 mg tablet 5 mg PO DAILY #30 tabs 05/03/24 ticagrelor 90 mg tablet (Brilinta) 90 mg PO BID #60 tabs 05/03/24 Physical Exam Const alert and no apparent distress Orientation / Consciousness: awake Weight / BMI Weight Weight: 98.611 kg Body Mass Index (BMI) 30.3 ABG / Lab / Microbiology Data 05/03/24 05:16 05/03/24 05:16 Laboratory: Laboratory Results - last 24 hr 05/02/24 17:13: POC Glucose 95 05/02/24 21:44: POC Glucose 104 05/03/24 05:16: WBC 7.7, RBC 4.53 L, Hgb 14.6, Hct 41.7, MCV 92.1, MCH 32.2 H, MCHC 35.0, RDW Std Deviation 51.1 H, RDW Coeff of Melani 15.2 H, Plt Count 202, MPV 9.5, Sodium 138, Potassium 4.1, Chloride 107, Carbon Dioxide 25.0, Anion Gap 7, BUN 19 H, Creatinine 1.19, Estim Creat Clear Calc 75.06, Est GFR (MDRD) Af Amer 79, Est GFR (MDRD) Non-Af 65, BUN/Creatinine Ratio 16.0, Glucose 118 H, Calcium 9.0, Total Bilirubin 1.40 H, AST 21, ALT 30, Alkaline Phosphatase 59, Total Protein 6.6, Albumin 3.5, Globulin 3.1, Albumin/Globulin Ratio 1.1 05/03/24 05:59: POC Glucose 117 H D/C Instructions Discharge Diet: 2000 Calorie Control Diet DC O2, CPAP, BIPAP Needs Additional Home O2 Discharge instructions: No DC home with Oxygen: No Meaningful Use Info Meaningful Use Meaningful Use Diagnoses (Choose all that apply): AMI AMI/Post PCI/Angioplasty Aspirin given w/in 24hrs of arrival?: Yes ASA at discharge?: Yes Antiplatelet Therapy at Discharge:: Yes Statins at discharge?: Yes Clark/ARB at discharge?: Yes Beta Cornell at discharge?: Yes Done w/ Acute TN measure.: Yes Documented LVEF (%): 55 Ischemic Stroke Statin Dosing Therapy Reference: STATIN DOSE THERAPY REFERENCE: * Patients > 75 years receive moderate or high dose statin therapy. * Patients 75 years or YOUNGER should receive HIGH intensity statin dose unless contraindicated. You will be required to document reason for non-treatment if statin daily dose does not meet guidelines. HIGH DOSE STATIN THERAPY DAILY Atorvastatin > than or = to 40 mg Rosuvastatin > than or = to 20 mg Amlodipine + Atorvastatin > than or = to 2.5/40 mg Ezetimibe + Simvastatin 10/80 mg Simvastatin 80mg Discharge Plan Admission Admit Date/Time: 05/02/24 14:38 Primary Reason for Your Visit: NSTEMI Attending Provider: Jayant Krishnan Primary Care Provider: Kelly Lorenz Consulting Providers: Dagmar Laguna; Laura West Instructions Patient Instructions: Coronary Stents, Cardiac Catheterization Dc, Cardiac Cath Transradial Discharge Orders/Prescriptions Prescriptions: New aspirin 81 mg Tablet,Delayed Release (Dr/Ec) 81 mg PO BREAKFAST Qty: 0 0RF atorvastatin 20 mg Tablet 20 mg PO QHS Qty: 30 0RF Brilinta 90 mg Tablet 90 mg PO BID Qty: 60 0RF lisinopril 5 mg tablet 5 mg PO DAILY Qty: 30 0RF Continued prazosin 2 mg capsule 4 mg PO HS trazodone 50 MG tablet 100 mg PO DAILY Patient Comments: SLEEP levothyroxine 75 mcg tablet 75 mcg PO DAILY fluticasone propionate [Allergy Relief (fluticasone)] 50 mcg/actuation spray,suspension 2 spray intranasal DAILY Rx Instructions: administer into each nostril omeprazole 20 mg capsule,delayed release(DR/EC) 20 mg PO DAILY carvedilol [Coreg] 3.125 mg tablet 3.125 mg PO BID Qty: 180 3RF Rx Instructions: administer with food (meal or snack) Referrals / Follow Up: [facility] [Provider Group] - Within 1 Month Kelly Lorenz MD [Primary Care Provider] - Within 2 Weeks Disposition Disposition (needs filled in before D/C Order can be placed): Home, Self Care Charges/Coding Visit Charges Inpatient E&M: 65535 Disch Hosp
--- NOTE | 2024-05-03 12:04 | CASEMGMT ---
Pt has an order for DC placed and has a new Rx for Brilinta. TC to [facility] who state that the Rx cost 5$ after insurance. JACQUI CARR to pt room at this time and updated with this information. Pt thanks this JACQUI CARR and denies further needs as he is ready for DC home today.
[2024-05-03 12:39] LABS: Bedside Glucose 101 mg/dL (74-106)
[2024-05-05 09:03] LABS: Bedside Glucose 101 mg/dL (74-106)
== END 2024-05-03 13:21 | disposition home or self-care (01) | DRG 322 ==
LOC: ED 22:00 → PCU 23:15
PROVIDERS: Specialist; Admitting Provider Family Medicine; Emergency Provider Emergency Medicine; PCP Family Medicine; Referring Provider Emergency Medicine
DX: I21.4 Non-ST elevation (NSTEMI) myocardial infarction (principal); I42.9 Cardiomyopathy, unspecified; A69.20 Lyme disease, unspecified; N18.30 Chronic kidney disease, stage 3 unspecified; I12.9 Hypertensive chronic kidney disease with stage 1 through stage 4 chronic kidney disease, or unspecified chronic kidney disease; E03.9 Hypothyroidism, unspecified; F32.A Depression, unspecified; Z68.31 Body mass index [BMI] 31.0-31.9, adult; F41.9 Anxiety disorder, unspecified; R73.03 Prediabetes; N40.0 Benign prostatic hyperplasia without lower urinary tract symptoms; E66.811 Obesity, class 1; Z86.718 Personal history of other venous thrombosis and embolism; Z79.899 Other long term (current) drug therapy
CPT/HCPCS: 36415; 71045; 80048; 80053; 80061; 82962; 83735; 84484; 85025; 85027; 85610; 85730; 92920; 92928; 93005; 93306; 93454; 99152; 99153; 99284; J7030; Q9957; Q9967; A4216; C1725; C1769; C1874; C1887; C1894; C9600; J1327

== ENCOUNTER → 2024-06-18 | Outpatient (CLI) | payer OTHER, SELFPAY ==
[2024-06-18 12:54] LABS: AST(SGOT) 21 U/L (15-37); Alanine Aminotransfer ALT/SGPT 37 U/L (16-61); Albumin, Serum 3.9 g/dL (3.2-5.0); Alkaline Phosphatase 70 U/L (45-117); Cholesterol 158 mg/dL (200); Globulin 3.6 g/dL (2.2-4.2); High Density Lipoprotein 41 mg/dL; Protein, Total 7.5 g/dL (6.4-8.2); Triglycerides 97 mg/dL; Very Low Density Lipoprotein 19 mg/dL (5-40)
== END | disposition home or self-care (01) ==
LOC: MTLAB 10:40
PROVIDERS: PCP Family Medicine; Referring Provider Physician Assistant Medical; Visit Provider Physician Assistant Medical
DX: I25.10 Atherosclerotic heart disease of native coronary artery without angina pectoris (principal)
CPT/HCPCS: 36415; 80061; 80076

== ENCOUNTER → 2024-09-11 | Outpatient (CLI) | payer OTHER, SELFPAY ==
--- NOTE | 2024-09-11 10:19 | STRESSREP ---
Stress Test Report Date: 09/11/2024 Procedure: Exercise tolerance test/imaging study Indications: Coronary artery disease Consent: Per the patient Procedure: The patient exercised on a Connor protocol for 5 minutes and 59 seconds achieving a peak heart rate of 142 bpm (91% predicted maximal heart rate) with a peak blood pressure 164/70 mmHg and a peak MET capacity of 7.0 METs. The baseline ECG demonstrated sinus rhythm. The peak exercise ECG showed sinus tachycardia with no ischemic changes. Occasional PVCs noted. The functional capacity was considered average. There was no complaint of chest discomfort during exercise or recovery. The examination was discontinued secondary to target heart rate being achieved. The patient was injected with 13.7 mCi of technetium 99m Cardiolite and subsequently rest SPECT Cardiolite nuclear imaging was obtained in the horizontal long, vertical long, and short axis views. Post-exercise, the patient was injected with 40.1 mCi of technetium 99m Cardiolite and subsequently stress SPECT Cardiolite nuclear imaging was obtained in the horizontal long, vertical long, and short axis views. A gated Cardiolite study at peak stress was obtained. Rest and stress SPECT Cardiolite nuclear imaging status post realignment, normalization, and attenuation correction, demonstrates mildly reduced perfusion of the inferior wall post stress that may denote mild ischemia. There is end systolic thickening and brightening. The gated Cardiolite study demonstrates myocardial thickening and inward wall motion. The reported LVEF is 66%. Impression: 1. Technically adequate (percent predicted maximal heart rate greater than 85%) exercise tolerance test 2. Peak exercise ECG with no ischemic changes 3. Occasional PVCs noted 4. Rest and stress SPECT Cardiolite nuclear imaging demonstrate mildly reduced perfusion of the inferior wall poststress, this may denote mild ischemia. Less than 5% myocardium involved. Overall low risk stress test. 5. The gated Cardiolite study reports an LVEF of 66%. This note was generated with [employer] software. It may contain incorrect words, spelling, and punctuation that were not noted in checking the note before signing.
== END | disposition home or self-care (01) ==
PROVIDERS: PCP Family Medicine; Referring Provider Physician Assistant Medical; Visit Provider Physician Assistant Medical
DX: I25.10 Atherosclerotic heart disease of native coronary artery without angina pectoris (principal); R07.9 Chest pain, unspecified; Z95.5 Presence of coronary angioplasty implant and graft
CPT/HCPCS: 78452; 93017; A9500; A4216

== ENCOUNTER → 2024-10-30 | Outpatient (CLI) | payer OTHER, SELFPAY ==
--- NOTE | 2024-10-30 12:40 | CT_ITS ---
PROCEDURE: LIMITED CHEST CT CARDIAC ONLY REASON FOR EXAM: ABN STRESS TECHNIQUE: Supine chest CT following 50 cc of Isovue-300 contrast. One or more dose reduction techniques were used (e.g., Automated exposure control, adjustment of the mA and/or kV according to patient size, use of iterative reconstruction technique). Dose report: 32.5 mGy DLP 1489.28 COMPARISON: None FINDINGS: Hardware: Lymph nodes: No mediastinal hilar or axillary lymphadenopathy. Heart and Vasculature: Normal heart size. No pericardial effusion. Coronary Artery Calcifications: Present Lungs and Airways: The lungs are normally expanded and clear. No septal thickening nodules or abnormal pulmonary opacities. Pleura: Upper Abdomen: Fatty infiltration of the liver. Status post cholecystectomy. Bones: Degenerative changes of the thoracic spine. CT/Limited Chest CT Cardiac Only IMPRESSION: Coronary artery calcification (CAC) is is present Reading Location: [place] [id number]
[2024-10-30 13:06] VITALS: BP 143/89; PULSE 63; RESP 18; TEMP 36.6; O2SAT 99; BMI 27.6
[2024-10-30 13:20] VITALS: BP 143/89; PULSE 63
[2024-10-30] MEDS: Nitroglycerin SL (ED/IMG/CATH) 0.4 MG TABLET SL (13:20)
[2024-10-30 13:28] VITALS: BP 113/64; PULSE 69; RESP 18; O2SAT 98
--- NOTE | 2024-11-03 17:28 | CA.SCORE ---
Calcium Scoring Date of Study:: 10/30/24 Coronary Calcium Scoring: High-resolution Computed Tomographic imaging of the chest was performed on [ ], with particular attention paid to the coronary arteries. Images from the examination were analyzed for the presence and extent of coronary artery calcification , using coronary calcium quantification software. The patient tolerated the procedure well and there were no complications. The results of the coronary calcification analysis are provided below. Calcium Scoring Interpretation: Different methods to categorize the overall amount of coronary plaque. Overall amount CAC SIS Visual of coronary plaque P1 Mild -100 <2 1-2 vessels with mild amount of plaque P2 Moderate 101-300 3-4 1-2 vessels with moderate amount, 3 vessels with mild amount of plaque P3 Severe 301-999 5-7 3 vessels with moderate amount, 1 vessel with severe amount of plaque P4 Extensive >1000 >8 2-3 vessels with severe amount of plaque
--- NOTE | 2024-11-03 20:20 | CCTA.WCONT ---
CCTA w/Cont Coronary Arteries Date of Study:: 10/30/24 Abnormal stress test chest pain Coronary Calcium Scoring: High-resolution Computed Tomographic imaging of the chest was performed on [10/30/2024], with particular attention paid to the coronary arteries. Intravenous contrast agent was administered per protocol and images reconstructed and displayed. LEFT MAIN CORONARY ARTERY: Arises from the left main coronary cusp with no significant stenosis noted. [] LEFT ANTERIOR DESCENDING CORONARY ARTERY: This vessel has a focal area of proximal calcification and then continues and distally is noted to have mild mixed plaque. No high-grade stenosis is noted in this vessel. [] LEFT CIRCUMFLEX CORONARY ARTERY: This vessel gives of a prominent first obtuse marginal branch and then continues in the AV groove branch with mid focal calcification present. No high-grade stenosis is present. [] RIGHT CORONARY ARTERY: Dominant vessel arising from the right coronary cusp with the proximal area exhibiting a stent which appears to be patent the vessel continues and just before the posterior descending artery is an eccentric distal plaque area of 30% and then the posterior descending artery and posterolateral vessels appear. [] THORACIC AORTA: [] PULMONARY ARTERY: [] LEFT ATRIUM/APPENDAGE: [] MITRAL VALVE: [] AORTIC VALVE: [] LEFT VENTRICLE: [] CORONARY CALCIUM SCORE: Not performed [] Calcium Scoring Interpretation: Different methods to categorize the overall amount of coronary plaque. Overall amount CAC SIS Visual of coronary plaque P1 Mild -100 <2 1-2 vessels with mild amount of plaque P2 Moderate 101-300 3-4 1-2 vessels with moderate amount, 3 vessels with mild amount of plaque P3 Severe 301-999 5-7 3 vessels with moderate amount, 1 vessel with severe amount of plaque P4 Extensive >1000 >8 2-3 vessels with severe amount of plaque Conclusion: CT angiogram demonstrating patent stent in the proximal to mid right coronary artery, focal calcification in the proximal LAD and no other high-grade stenosis present.
== END | disposition home or self-care (01) ==
PROVIDERS: PCP Family Medicine; Referring Provider Physician Assistant Medical; Visit Provider Physician Assistant Medical
DX: R94.39 Abnormal result of other cardiovascular function study (principal)
CPT/HCPCS: 75574; 76380; Q9967